=== PATIENT | male | born 1995 | race Caucasian/White ===

== ENCOUNTER 2018-06-12 15:25 | Emergency (ER) | payer OTHER ==
--- NOTE | 2018-06-12 16:14 | ER Document Report ---
ED Medical Screen (RME) - General Chief Complaint: Suicidal Ideation and aggression Stated Complaint: PSYCH EVAL/SUICIDAL IDEATION Time Seen by Provider: 06/12/18 16:06 Notes: 23 years old male with history of PTSD due to being exposed to [place], was starting his medications down because his appointment is in June. Started having thoughts of hurting himself. Therefore mobile crisis intervened and brought him to the ED. TRAVEL OUTSIDE OF THE [place] IN LAST 30 DAYS: No - Related Data Allergies/Adverse Reactions: No Known Allergies Allergy (Unverified 06/12/18 15:59) Past Medical History - Social History Frequency of alcohol use: Occasional Drug Abuse: Marijuana Renal/ Medical History: Denies: Hx Peritoneal Dialysis Physical Exam - Vital signs Vitals: Temp Pulse Resp BP Pulse Ox 97.9 F 65 16 135/84 H 99 06/12/18 15:56 06/12/18 15:56 06/12/18 15:56 06/12/18 15:56 06/12/18 15:56 Course - Vital Signs Vital signs: Temp Pulse Resp BP Pulse Ox 97.9 F 65 16 135/84 H 99 06/12/18 15:56 06/12/18 15:56 06/12/18 15:56 06/12/18 15:56 06/12/18 15:56
[2018-06-12 16:37] LABS: ABSOLUTE BASOPHILS # (AUTO) 0.1 10^3/uL (0.0-0.2); ABSOLUTE EOSINOPHILS # (AUTO) 0.1 10^3/uL (0.0-0.6); ABSOLUTE LYMPHOCYTES (AUTO) 1.7 10^3/uL (0.5-4.7); ABSOLUTE MONOCYTES (AUTO) 0.8 10^3/uL (0.1-1.4); ABSOLUTE NEUT (AUTO) 5.2 10^3/uL (1.7-8.2); BASOPHILS % (AUTO) 0.7 % (0-2); EOSINOPHILS % (AUTO) 1.1 % (0-6); HEMATOCRIT 48.8 % (37.9-51.0); HEMOGLOBIN 16.9 g/dL (13.5-17.0); MEAN CORPUSCULAR HEMOGLOBIN 29.3 pg (27.0-33.4); MEAN CORPUSCULAR HGB CONC 34.6 g/dL (32.0-36.0); MEAN CORPUSCULAR VOLUME 85 fl (80-97); MONOCYTES % (AUTO) 9.9 % (3-13); PLATELET COUNT 161 10^3/uL (150-450); RED BLOOD COUNT 5.75 10^6/uL (4.35-5.55); RED CELL DISTRIBUTION WIDTH 13.6 % (11.5-14.0); SEGMENTED NEUTROPHILS % (AUTO) 66.3 % (42-78); TOTAL CELLS COUNTED % (AUTO) 100 %; WHITE BLOOD COUNT 7.8 10^3/uL (4.0-10.5)
[2018-06-12 16:53] LABS: APPEARANCE,URINE SLIGHTLY-CLOUDY; BILIRUBIN,URINE NEGATIVE (NEGATIVE); COLOR,URINE YELLOW; GLUCOSE, URINE NEGATIVE (NEGATIVE); KETONES,URINE 20 mg/dL (NEGATIVE); LEUKOCYTE ESTERASE,URINE NEGATIVE (NEGATIVE); NITRITE,URINE NEGATIVE (NEGATIVE); PROTEIN,URINE NEGATIVE (NEGATIVE); URINE SPECIFIC GRAVITY 1.028
[2018-06-12 16:56] LABS: ALANINE AMINOTRANSFERASE 21 U/L (21-72); ALBUMIN 4.9 g/dL (3.5-5.0); ALKALINE PHOSPHATASE 82 U/L (38-126); ANION GAP 14 (5-19); ASPARTATE AMINO TRANSFERASE 28 U/L (17-59); BILIRUBIN,DIRECT 0.2 mg/dL (0.0-0.4); BILIRUBIN,TOTAL 0.7 mg/dL (0.2-1.3); BLOOD UREA NITROGEN 14 mg/dL (7-20); CALCIUM 10.2 mg/dL (8.4-10.2); CARBON DIOXIDE 27 mmol/L (22-30); CHLORIDE 105 mmol/L (98-107); GLUCOSE 94 mg/dL (75-110); POTASSIUM 4.5 mmol/L (3.6-5.0); SODIUM 146.1 mmol/L (137-145); TOTAL PROTEIN 8.3 g/dL (6.3-8.2)
[2018-06-12 16:58] LABS: ACETAMINOPHEN < 10 ug/mL (10-30); ALCOHOL < 10 mg/dL (NONE DETECTED); SALICYLATE < 1.0 mg/dL (2.0-20.0)
[2018-06-12 17:03] LABS: URINE AMPHETAMINES SCREEN NEGATIVE; URINE BARBITURATES SCREEN NEGATIVE; URINE BENZODIAZEPINES SCREEN NEGATIVE; URINE COCAINE SCREEN NEGATIVE; URINE MARIJUANA (THC) SCREEN UNCONFIRMED POSITIVE; URINE METHADONE SCREEN NEGATIVE; URINE PHENCYCLIDINE SCREEN NEGATIVE
--- NOTE | 2018-06-12 17:43 | ER Document Report ---
ED General - General Chief Complaint: Psych Problem Stated Complaint: PSYCH EVAL/SUICIDAL IDEATION Time Seen by Provider: 06/12/18 16:06 TRAVEL OUTSIDE OF THE [place] IN LAST 30 DAYS: No - HPI Notes: Patient is a 23-year-old male with a history of PTSD, anxiety, depression who presents to the ED for any acute episode of his depression with suicidal ideations. Patient states that several stressors hit him at the same time today and he had a "outburst." Patient states that he called emergency personnel who help calm him down. Patient states that he was so stressed that he was to the point where he may have considered by copyist. Patient states that the crisis hotline then wanted him evaluated here so he was brought by his friend. Patient states that his friend is out in the waiting room waiting for him. Patient does admit that what he was thinking was "stupid" and that he is on the upside at this time. Patient states that he got the outburst out of his way and he is feeling much better. Patient states that he has people to live for and does have class tomorrow which he wants to attend. Patient states [facility] also [facility] Patient states that he no longer has any suicidal or homicidal thoughts or ideations. He has no visual or auditory hallucinations. Patient states that he is currently on medications for mental health. Patient states that he is aware of phone calls to dial for acute episodes. He has otherwise been eating and drinking without any difficulties, but does have a decreased p.o. intake. He is urinating normally and having normal bowel movements. Denies any headache, fever, neck pain, changes in vision/speech/hearing, URI, sore throat, chest pain, palpitations, syncope, cough, shortness of breath, wheeze, dyspnea, abdominal pain, nausea/vomiting/diarrhea, urinary retention, dysuria, hematuria, loss of control of bowel or bladder, numbness/tingling, saddle anesthesia, muscle paralysis/weakness, or rash. - Related Data Allergies/Adverse Reactions: No Known Allergies Allergy (Unverified 06/12/18 15:59) Past Medical History - Social History Smoking Status: Current Every Day Smoker Frequency of alcohol use: Occasional Drug Abuse: Marijuana Family History: Reviewed & Not Pertinent Patient has suicidal ideation: Yes Patient has homicidal ideation: Yes Renal/ Medical History: Denies: Hx Peritoneal Dialysis Psychiatric Medical History: Reports: Hx Bipolar Disorder, Hx Depression - ptsd ANXIETY Review of Systems - Review of Systems -: Yes All other systems reviewed and negative Physical Exam - Vital signs Vitals: Temp Pulse Resp BP Pulse Ox 97.9 F 65 16 135/84 H 99 06/12/18 15:56 06/12/18 15:56 06/12/18 15:56 06/12/18 15:56 06/12/18 15:56 - Notes Notes: PHYSICAL EXAMINATION: GENERAL: Well-appearing, well-nourished and in no acute distress. A&Ox4. Answers questions appropriately. Calm, collected. HEAD: Atraumatic, normocephalic. EYES: Pupils equal round and reactive to light, extraocular movements intact, sclera anicteric, conjunctiva are normal. ENT: Nares patent and without discharge. oropharynx clear without exudates. No tonsilar hypertrophy or erythema. Moist mucous membranes. NECK: Normal range of motion, supple without lymphadenopathy LUNGS: Breath sounds clear to auscultation bilaterally and equal. No wheezes rales or rhonchi. HEART: Regular rate and rhythm without murmurs, rubs, gallops. ABDOMEN: Soft, nontender, nondistended abdomen. No guarding, no rebound. No masses appreciated. Normal bowel sounds present. No CVA tenderness bilaterally. Musculoskeletal: FROM to passive/active. Strength 5+/5. Extremities: No cyanosis, clubbing, or edema b/l. Peripheral pulses 2+. Capillary refill less than 3 seconds. NEUROLOGICAL: Cranial nerves grossly intact. Normal speech, normal gait. Normal sensory, motor exams PSYCH: Normal mood, normal affect. SKIN: Warm, Dry, normal turgor, no rashes or lesions noted. Course - Re-evaluation Re-evalutation: 06/12/18 17:55 Patient is an afebrile, well-hydrated, 23-year-old male who presents to the ED with irritability and more of a passive suicidal ideation. Vitals are acceptable without any significant tachycardia, tachypnea, or hypoxia. PE is otherwise unremarkable for any focal neurological deficits. Patient is nontoxic -appearing and is tolerating p.o. without any difficulties. His labs are unremarkable aside from noted marijuana use which he admitted to. Patient has verbalized poor thinking for his actions earlier this afternoon and would like to go home. Patient states that he does not have any SI or HI. He has a support system in place and has follow-up with his provider on Sunday. Patient has expressed desire to want to go to class tomorrow morning does not want to stay for our psychology team evaluation. Patient states that he will be going to stay with his parents marlys or his friend's house with other roommates around. He states that he will be supervised and has a good support system around him. He states that he does not have any weapons in his household. He is accompanied by his friend will be keeping him accountable per friend. He is going to call his mobile crisis consult when he is discharged as well. I did notify [facility] to let them know the plan and that they may check on him later. Patient has been in agreement with me that he will not attempt any suicidal or homicidal thoughts/ideations unless coming to the emergency department or call emergency services/mobile crisis. I did review with Dr. Mendez who is in agreement with dispo/plan at this time. Patient is to keep appointment with his provider on Sunday. Return to the ED with any worsening/concerning symptoms otherwise as reviewed. Patient is in agreement. - Vital Signs Vital signs: Temp Pulse Resp BP Pulse Ox 97.9 F 65 16 135/84 H 99 06/12/18 15:56 06/12/18 15:56 06/12/18 15:56 06/12/18 15:56 06/12/18 15:56 - Laboratory Result Diagrams: 06/12/18 16:25 06/12/18 16:25 Laboratory results interpreted by me: 06/12/18 06/12/18 06/12/18 16:25 16:25 16:25 RBC 5.75 H Sodium 146.1 H Creatinine 1.34 H Total Protein 8.3 H Urine Ketones 20 H Urine Blood SMALL H Urine Urobilinogen 2.0 H Salicylates < 1.0 L Acetaminophen < 10 L Discharge - Discharge Clinical Impression: Passive suicidal ideations Condition: Stable Disposition: HOME, SELF-CARE Additional Instructions: Maintain adequate fluid and food intake Healthy diet and exercise Monitor for any worsening symptoms Recheck with your PCM/psych provider on Sunday as scheduled Continue to use emergency personnel and/or mobile crisis for any recurrence of suicidal/homicidal thoughts or ideations and planning* Return to the ED with any worsening symptoms and/or development of fever, headache, changes in behavior/mentation/vision/speech, chest pain, palpitations , syncope, shortness of breath, trouble breathing, abdominal pain, n/v/d, blood in stool/urine, loss of control of bowel/bladder, urinary retention, muscle weakness/paralysis, saddle anesthesia, numbness/tingling, or other worsening symptoms that are concerning to you. Prescriptions: Lurasidone HCl [Latuda] 20 mg PO DAILY #6 tablet Forms: Elevated Blood Pressure Referrals: [facility] [Provider Group] - Follow up as needed
[2018-06-12 18:12] VITALS: BP 141/81
--- NOTE | 2018-06-12 19:17 | EKG REPORT ---
SEVERITY:- NORMAL ECG - SINUS RHYTHM : Confirmed by: Yanna Green MD 12-Jun-2018 19:16:56
== END 2018-06-12 18:23 | disposition home or self-care (01) ==
LOC: ER 15:25
DX: R45.851 Suicidal ideations (principal); F32.9 Major depressive disorder, single episode, unspecified; Z79.899 Other long term (current) drug therapy; F17.200 Nicotine dependence, unspecified, uncomplicated; R45.4 Irritability and anger; F12.10 Cannabis abuse, uncomplicated
CPT/HCPCS: 36415; 80053; 80307; 81001; 85025; 93005; 93010; 99285